=== PATIENT | male | born 1945 | race American Indian/Alaskan Native ===

== ENCOUNTER 2020-10-13 10:22 | Emergency (ER) | payer MEDICARE ==
--- NOTE | 2020-10-13 10:39 | Emergency Department Report ---
Zenaida Doc - Documentation Documentation: 75-year-old -Vincent[place] male plasma department complaining of a 14 to 15- hour history of left hand weakness and coolness of an unknown etiology states he was doing some type of activity on yesterday when the symptoms have started states he is having trouble grasping but reports no speech issue reports no headache reports no dizziness reports no chest pain for no shortness of breath. 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 Plan to have further ED evaluation by the physician Case was discussed with Dr. Cotter no imaging or labs are necessary at this time This initial assessment/diagnostic orders/clinical plan/treatment(s) is/are subject to change based on patients health status, clinical progression and re- assessment by fellow clinical providers in the ED. Further treatment and workup at subsequent clinical providers discretion. Patient/guardian urged not to elope from the ED as their condition may be serious if not clinically assessed and managed. Initial orders include:
--- NOTE | 2020-10-13 13:45 | Emergency Department Report ---
ED Extremity Problem HPI - General Chief complaint: Extremity Problem,Nontraumatic Stated complaint: LFT ARM NUMB Time Seen by Provider: 10/13/20 12:06 Source: patient Mode of arrival: Ambulatory Limitations: No Limitations - History of Present Illness Initial comments: This very pleasant 75-year-old male presents the emergency department chief complaint of weakness to his left wrist and hand that started when he woke up this morning at 6 AM. Patient reports he went to bed at 8 PM last night and fell asleep at 9 PM and his hand was working normally at that point. He reports a history of a CVA in September 06, 2010 where he was given TPA in the emergency department his symptoms resolved. He denies any weakness to the arm just the wrist and hand. He denies any other associated symptoms such as fever, chills, night sweats, headache, dizziness, blurry vision, nausea,, diarrhea, chest pain, shortness of breath or any other associated symptoms. - Related Data Home Medications Medication Instructions Recorded Confirmed Last Taken Aspirin [Adult Aspirin] 81 mg PO QDAY 08/16/20 08/16/20 08/16/20 Previous Rx's Medication Instructions Recorded Last Taken Type Furosemide [Lasix] 20 mg PO QDAY #60 tablet 08/19/20 Unknown Rx NIFEdipine XL [Procardia Xl] 90 mg PO QDAY #60 tablet 08/19/20 Unknown Rx Pravastatin [Pravachol] 40 mg PO QHS #60 tablet 08/19/20 Unknown Rx Valsartan [Diovan] 160 mg PO BID #60 tablet 08/19/20 Unknown Rx carvediloL [Coreg] 6.25 mg PO BID #60 tablet 08/19/20 Unknown Rx hydrALAZINE [Apresoline TAB] 50 mg PO Q8HR #120 tablet 08/19/20 Unknown Rx Aspirin 325 mg PO ONCE #30 tablet 10/13/20 Unknown Rx Allergies Allergy/AdvReac Type Severity Reaction Status Date / Time Penicillins Allergy Unknown Verified 08/16/20 15:24 rivaroxaban [From Xarelto] Allergy Unknown Verified 08/16/20 15:24 ED Review of Systems ROS: Stated complaint: LFT ARM NUMB Other details as noted in HPI Comment: All other systems reviewed and negative Constitutional: denies: chills, fever Eyes: denies: eye pain, eye discharge, vision change ENT: denies: ear pain, throat pain Respiratory: denies: cough, shortness of breath, wheezing Cardiovascular: denies: chest pain, palpitations Endocrine: no symptoms reported Gastrointestinal: denies: abdominal pain, nausea, diarrhea Genitourinary: denies: urgency, dysuria Musculoskeletal: denies: back pain, joint swelling, arthralgia Skin: denies: rash, lesions Neurological: as per HPI, weakness. denies: headache, paresthesias Psychiatric: denies: anxiety, depression Hematological/Lymphatic: denies: easy bleeding, easy bruising ED Past Medical Hx - Past Medical History Previous Medical History?: Yes Hx Hypertension: Yes Hx CVA: Yes (Dec 2019) Additional medical history: Hyperlipidema - Social History Smoking Status: Never Smoker - Medications Home Medications: Home Medications Medication Instructions Recorded Confirmed Last Taken Type Aspirin [Adult Aspirin] 81 mg PO QDAY 08/16/20 08/16/20 08/16/20 History Furosemide [Lasix] 20 mg PO QDAY #60 tablet 08/19/20 Unknown Rx NIFEdipine XL [Procardia Xl] 90 mg PO QDAY #60 tablet 08/19/20 Unknown Rx Pravastatin [Pravachol] 40 mg PO QHS #60 tablet 08/19/20 Unknown Rx Valsartan [Diovan] 160 mg PO BID #60 tablet 08/19/20 Unknown Rx carvediloL [Coreg] 6.25 mg PO BID #60 tablet 08/19/20 Unknown Rx hydrALAZINE [Apresoline TAB] 50 mg PO Q8HR #120 tablet 08/19/20 Unknown Rx Aspirin 325 mg PO ONCE #30 tablet 10/13/20 Unknown Rx ED Physical Exam - General Limitations: No Limitations General appearance: alert, in no apparent distress - Head Head exam: Present: atraumatic, normocephalic - Eye Eye exam: Present: normal appearance, PERRL, EOMI Pupils: Present: normal accommodation - ENT ENT exam: Present: normal exam, normal orophraynx, mucous membranes moist - Neck Neck exam: Present: normal inspection, full ROM. Absent: tenderness, meningismus - Respiratory Respiratory exam: Present: normal lung sounds bilaterally. Absent: respiratory distress, wheezes, rales, rhonchi, stridor - Cardiovascular Cardiovascular Exam: Present: regular rate, normal rhythm, normal heart sounds. Absent: systolic murmur, diastolic murmur, rubs, gallop - GI/Abdominal GI/Abdominal exam: Present: soft, normal bowel sounds. Absent: distended, tenderness, guarding, rebound, rigid - Rectal Rectal exam: Present: deferred - Extremities Exam Extremities exam: Present: normal inspection, full ROM. Absent: tenderness - Back Exam Back exam: Present: normal inspection, full ROM. Absent: tenderness, CVA tenderness (R), CVA tenderness (L) - Neurological Exam Neurological exam: Present: alert, oriented X3, CN II-XII intact, normal gait, other (There is normal strength and sensation the bilateral upper and lower extremities with exception of the left hand. Patient is able to lift up the whole left arm and has no drift but he has weakness at the wrist and fingers. He has normal distal sensation and capillary refill. He has normal finger-to- nose on the right but is unable to do it on the left due to the weakness. He has no ataxia and a stable gait. He has normal [id number] on the bilateral lower extremities.) - Psychiatric Psychiatric exam: Present: normal affect, normal mood - Skin Skin exam: Present: warm, dry, intact, normal color. Absent: rash ED Course Vital Signs 10/13/20 10:33 Temperature 97.8 F Pulse Rate 68 Respiratory 16 Rate Blood Pressure 196/95 [Right] O2 Sat by Pulse 97 Oximetry - Reevaluation(s) Reevaluation #1: 10/13/20 13:44 Patient symptoms are atypical of a stroke and his NIH score is actually a 0 however discussed with attending physician who recommend we get a CAT scan, labs and discuss with neurology due to his history and high risk. Reevaluation #2: 10/13/20 17:01 Upon further questioning the patient stated he would prefer to go home and get the MRI as an outpatient. He understood that he may be having a stroke or a radial nerve palsy. He states he did follow-up with his primary care doctor this morning and they stated this was likely related to a radial nerve palsy and they recommended physical therapy. The patient was instructed to return to the emerge part any change or worsening symptoms. - Consultations Consultation #1: 10/13/20 15:43 Spoke to the Telenurology Nurse Clay Miner and gave history. She will set up teleneurology visit with patient in the room. Consultation #2: 10/13/20 17:[address] Godinez he stated that the patient needed an MRI whether that is inpatient or outpatient. Recommended antiplatelet agent. The patient was given the option of staying the hospital for stat MRI however he politely declined stating he preferred to follow-up with his primary care doctor . ED Medical Decision Making - Lab Data Result diagrams: 10/13/20 13:34 10/13/20 13:34 Lab Results 10/13/20 10/13/20 Range/Units 13:34 13:34 WBC 6.6 (4.5-11.0) K/mm3 RBC 5.02 (3.65-5.03) M/mm3 Hgb 14.1 (11.8-15.2) gm/dl Hct 42.5 (35.5-45.6) % MCV 85 (84-94) fl MCH 28 (28-32) pg MCHC 33 (32-34) % RDW 15.7 H (13.2-15.2) % Plt Count 130 L (140-440) K/mm3 Lymph % (Auto) 33.1 (13.4-35.0) % [place] % (Auto) 10.7 H (0.0-7.3) % Eos % (Auto) 1.8 (0.0-4.3) % Baso % (Auto) 0.2 (0.0-1.8) % Lymph # (Auto) 2.2 (1.2-5.4) K/mm3 [place] # (Auto) 0.7 (0.0-0.8) K/mm3 Eos # (Auto) 0.1 (0.0-0.4) K/mm3 Baso # (Auto) 0.0 (0.0-0.1) K/mm3 Seg Neutrophils % 54.2 (40.0-70.0) % Seg Neutrophils # 3.6 (1.8-7.7) K/mm3 Sodium 139 (137-145) mmol/L Potassium 3.3 L (3.6-5.0) mmol/L Chloride 100.7 (98-107) mmol/L Carbon Dioxide 30 (22-30) mmol/L Anion Gap 12 mmol/L BUN 14 (9-20) mg/dL Creatinine 0.8 (0.8-1.3) mg/dL Estimated GFR > 60 ml/min BUN/Creatinine Ratio 18 % Glucose 90 (75-100) mg/dL Calcium 9.5 (8.4-10.2) mg/dL Total Bilirubin 0.40 (0.1-1.2) mg/dL AST 21 (5-40) units/L ALT 12 (7-56) units/L Alkaline Phosphatase 71 (35-129) units/L Total Protein 7.8 (6.3-8.2) g/dL Albumin 4.1 (3.9-5) g/dL Albumin/Globulin Ratio 1.1 % - Radiology Data Radiology results: report reviewed Cat Scan Report Signed Patient: SANDRITA BRANDON MR#: [id number] : 1945 Acct:[id number] Age/Sex: 75 / M ADM Date: 10/13/20 Loc: ED Attending Dr: Ordering Physician: JUSTINE HOBBS Date of Service: 10/13/20 Procedure(s): CT head/brain wo con Accession Number(s): [id number] cc: JUSTINE HOBBS CT head/brain wo con INDICATION: Headache. TECHNIQUE: Routine CT head. All CT scans at this location are performed using CT dose reduction for ALARA by means of automated exposure control. COMPARISON: None. FINDINGS: Intracranial: Encephalomalacia in right middle frontal gyrus and putamen. No acute loss of grossman- white matter differentiation is identified.. No intracranial hemorrhage. No extra axial collection.. No hydrocephalus. No herniation. Sinuses: Paranasal sinuses and mastoid air cells are essentially clear. Orbits: Globes are intact. Calvarium: No acute fracture. IMPRESSION: 1. No acute intracranial abnormality. 2. Remote right MCA infarction. Signer Name: Ismael Hooks MD Signed: 10/13/2020 2:12 PM Workstation Name: [id number] Transcribed By: CS Dictated By: Ismael Hooks MD Electronically Authenticated By: Ismael Hooks MD Signed Date/Time: 10/13/201411 DD/ 06 TD/TT: - Medical Decision Making The patient's blood pressure improved from 196/90 5-1 60/82 while in the emergency department. His neuro exam showed only only focal weakness to the left wrist which is suspicious for a radial nerve palsy versus a CVA. Discussed with neurology who recommended MRI and antiplatelet therapy. The patient did not want to stay in the hospital for MRI and stroke work-up and preferred to follow-up with his outpatient physician for MRI. Patient will follow up with neurology outpatient which I will refer him and recommended he return to the emerge part immediately develops any change or worsening symptoms. Discussed wi th attending also the patient at bedside and agrees with plan. Patient verbalized understanding the diagnosis, treatment plan and follow-up instructions all his questions were answered. - Differential Diagnosis radial nerve palsy, CVA, TIA Critical care attestation.: If time is entered above; I have spent that time in minutes in the direct care of this critically ill patient, excluding procedure time. ED Disposition Clinical Impression: Left hand weakness Disposition: - TO HOME OR SELFCARE Is pt being admited?: No Does the pt Need Aspirin: Yes Condition: Stable Instructions: Radial Nerve Palsy Prescriptions: Aspirin 325 mg PO ONCE #30 tablet Referrals: PRIMARY MD GARRETT [Primary Care Provider] - 3-5 Days [facility] [Provider Group] - 3-5 Days DENNYS SKINNER MD [Staff Physician] - 3-5 Days Time of Disposition: 17:04
[2020-10-13 13:47] LABS: Basophils % (Auto) 0.2 % (0.0-1.8); Eosinophils # (Auto) 0.1 K/mm3 (0.0-0.4); Eosinophils % (Auto) 1.8 % (0.0-4.3); Hematocrit 42.5 % (35.5-45.6); Hemoglobin 14.1 gm/dl (11.8-15.2); Lymphocytes # (Auto) 2.2 K/mm3 (1.2-5.4); Lymphocytes % (Auto) 33.1 % (13.4-35.0); Mean Corpuscular HGB Conc 33 % (32-34); Mean Corpuscular Volume 85 fl (84-94); Monocytes # (Auto) 0.7 K/mm3 (0.0-0.8); Monocytes % (Auto) 10.7 % (0.0-7.3); Platelet Count 130 K/mm3 (140-440); Red Blood Count 5.02 M/mm3 (3.65-5.03); Red Cell Distribution Width 15.7 % (13.2-15.2)
--- NOTE | 2020-10-13 14:16 | Cat Scan Report ---
CT head/brain wo con INDICATION: Headache. TECHNIQUE: Routine CT head. All CT scans at this location are performed using CT dose reduction for A MISA by means of automated exposure control. COMPARISON: None. FINDINGS: Intracranial: Encephalomalacia in right middle frontal gyrus and putamen. No acute loss of grossman-white matter differentiation is identified.. No intracranial hemorrhage. No extra axial collection.. No hy drocephalus. No herniation. Sinuses: Paranasal sinuses and mastoid air cells are essentially clear. Orbits: Globes are intact. Calvarium: No acute fracture. IMPRESSION: 1. No acute intracranial abnormality. 2. Remote right MCA infarction. Signer Name: Ismael Hooks MD Signed: 10/13/2020 2:12 PM Workstation Name: [id number]
[2020-10-13 14:23] LABS: Alanine Aminotransferase 12 units/L (7-56); Albumin 4.1 g/dL (3.9-5); BUN/Creatinine Ratio 18; Blood Urea Nitrogen 14 mg/dL (9-20); Calcium 9.5 mg/dL (8.4-10.2); Hemolysis Index 12
--- NOTE | 2020-10-13 16:53 | Consultation ---
Medications and Allergies Allergies Allergy/AdvReac Type Severity Reaction Status Date / Time Penicillins Allergy Unknown Verified 08/16/20 15:24 rivaroxaban [From Xarelto] Allergy Unknown Verified 08/16/20 15:24 Home Medications Medication Instructions Recorded Confirmed Last Taken Type Aspirin [Adult Aspirin] 81 mg PO QDAY 08/16/20 08/16/20 08/16/20 History Furosemide [Lasix] 20 mg PO QDAY #60 tablet 08/19/20 Unknown Rx NIFEdipine XL [Procardia Xl] 90 mg PO QDAY #60 tablet 08/19/20 Unknown Rx Pravastatin [Pravachol] 40 mg PO QHS #60 tablet 08/19/20 Unknown Rx Valsartan [Diovan] 160 mg PO BID #60 tablet 08/19/20 Unknown Rx carvediloL [Coreg] 6.25 mg PO BID #60 tablet 08/19/20 Unknown Rx hydrALAZINE [Apresoline TAB] 50 mg PO Q8HR #120 tablet 08/19/20 Unknown Rx Physical Examination - Vital Signs Vital Signs: Vital Signs Temp Pulse Resp BP Pulse Ox 97.8 F 68 16 196/95 97 10/13/20 10:33 10/13/20 10:33 10/13/20 10:33 10/13/20 10:33 10/13/20 10:33 Results - Laboratory Findings CBC and BMP: 10/13/20 13:34 10/13/20 13:34 Abnormal Lab Findings: Abnormal Labs 10/13/20 10/13/20 13:34 13:34 RDW 15.7 H Plt Count 130 L [place] % (Auto) 10.7 H Potassium 3.3 L Assessment and Plan [facility] Tele[facility]urology Consult Services Stat Consult Date of Service: 10/13/2020 15:38:59 Impression: Rule Out Acute Ischemic Stroke Radial nerve palsy Comments/Sign-Out: L hand weakness/wrist drop and no movement of fingers - stroke v radial nerve palsy consider mri br if appropriate, consider stroke workup if appropriate, manage BP, d/w ED MD CT HEAD: Showed No Acute Hemorrhage or Acute Core Infarct Metrics: [facility] Notification Time: 10/13/2020 15:37:03 Stamp Time: 10/13/2020 15:38:59 Callback Response Time: 10/13/2020 15:40:05 Video Start Time: 10/13/2020 16:38:43 Our recommendations are outlined below. Recommendations: Antiplatelet Therapy Imaging Studies: MRI Head Therapies: Physical Therapy Disposition: Neurology Follow Up Recommended Sign Out: Discussed with Emergency Department Provider Chief Complaint: L hand weakness History of Present Illness: Patient is a 75 year old Male. 75 yo M h/o previous stroke involving L arm, HL, on aspirin, HTN p/w L hand weakness upon awakening. Pt states he did not lay on left arm, no trauma to left arm. No residual weakness from previous stroke Past Medical History: Hypertension Hyperlipidemia Antiplatelet use: aspirin Examination: BP(196/95), Pulse(68), Blood Glucose(90) 1A: Level of Consciousness - Alert; keenly responsive + 0 1B: Ask Month and Age - Both Questions Right + 0 1C: Blink Eyes & Squeeze Hands - Performs Both Tasks + 0 2: Test Horizontal Extraocular Movements - Normal + 0 3: Test Visual Jay - No Visual Loss + 0 4: Test Facial Palsy (Use Grimace if Obtunded) - Normal symmetry + 0 5A: Test Left Arm Motor Drift - No Drift for 10 Seconds + 0 5B: Test Right Arm Motor Drift - No Drift for 10 Seconds + 0 6A: Test Left Leg Motor Drift - No Drift for 5 Seconds + 0 6B: Test Right Leg Motor Drift - No Drift for 5 Seconds + 0 7: Test Limb Ataxia (FNF/Heel-Gold) - No Ataxia + 0 8: Test Sensation - Mild-Moderate Loss: Less Sharp/More Dull + 1 9: Test Language/Aphasia - Normal; No aphasia + 0 10: Test Dysarthria - Normal + 0 11: Test Extinction/Inattention - No abnormality + 0 NIHSS Score: 1 Patient/Family was informed the Neurology Consult would happen via TeleHealth consult by way of interactive audio and video telecommunications and consented to receiving care in this manner. Due to the immediate potential for life-threatening deterioration due to underlying acute neurologic illness, I spent 30 minutes providing critical care. This time includes time for face to face visit via telemedicine, review of medical records, imaging studies and discussion of findings with providers, the patient and/or family. Dr Irina Godinez [facility] Case [id number]
[2020-10-13 17:08] VITALS: BP 160/82
== END 2020-10-13 17:11 | disposition home or self-care (01) ==
LOC: ED 10:22
DX: R53.1 Weakness (principal); R20.0 Anesthesia of skin; I10 Essential (primary) hypertension; Z86.73 Personal history of transient ischemic attack (TIA), and cerebral infarction without residual deficits; Z79.899 Other long term (current) drug therapy; Z88.0 Allergy status to penicillin; Z88.8 Allergy status to other drugs, medicaments and biological substances
CPT/HCPCS: 36415; 70450; 80053; 85025